=== PATIENT | female | born 1985 | race Caucasian/White ===

== ENCOUNTER 2018-11-19 18:05 | Emergency (ER) | payer SELFPAY ==
--- NOTE | 2018-11-19 18:14 | NUR ---
PT WAS CALLED TO ER TRIAGE AREA - NO RESPONSE.
--- NOTE | 2018-11-19 18:33 | NUR ---
PT WAS CALLED SECOND TIME TO ER TRIAGE AREA - NO RESPONSE.
== END 2018-11-19 18:40 | disposition left against medical advice (07) ==
LOC: ER 18:05
DX: Z53.21 Procedure and treatment not carried out due to patient leaving prior to being seen by health care provider (principal)